=== PATIENT | female | born 2000 | race Caucasian/White ===

== ENCOUNTER → 2021-06-10 19:27 | Outpatient (ROUT) | payer OTHER, SELFPAY ==
[2021-06-10 22:32] LABS: Urine N gonorrhoeae NOT DETECTED
[2021-06-10 23:02] LABS: Urine Chlamydia NOT DETECTED
== END ==
PROVIDERS: Visit Provider Obstetrics & Gynecology
DX: Z34.81 Encounter for supervision of other normal pregnancy, first trimester (principal); Z3A.08 8 weeks gestation of pregnancy
CPT/HCPCS: 87491; 87591

== ENCOUNTER → 2021-07-08 08:23 | Outpatient (CLI) | payer OTHER, SELFPAY ==
[2021-07-08 10:19] LABS: Add Manual Diff / Slide Review NO; Basophils Absolute Auto 0 /uL (0-100); Basophils Percent Auto 0.2 % (0-2); Eosinophils Absolute Auto 100 /uL (0-450); Eosinophils Percent Auto 0.6 % (2-4); Hematocrit 39.2 % (36-46); Hemoglobin 13.8 g/dL (12.0-16.0); Lymphocytes Absolute Auto 1500 /uL (1100-4500); Lymphocytes Percent Auto 17.7 % (25-40); Mean Corpuscular HGB Conc 35.2 % (30-36); Mean Corpuscular Hemoglobin 30.8 PG (26-34); Mean Corpuscular Volume 87.4 fL (80-100); Monocytes Absolute Auto 400 /uL (0-900); Monocytes Percent Auto 4.5 % (3-14); Neutrophils Absolute Auto 6400 /uL (1500-7000); Platelet Count 248 X10^3/uL (150-400); Red Blood Cell Count 4.49 X10^6/uL (4.0-5.2); Red Cell Distribution Width 12.8 % (11.6-14.8); White Blood Cell Count 8.4 X10^3/uL (4.5-11.0)
[2021-07-08 10:58] LABS: Hepatitis B Surface Antigen NEGATIVE s/c (NEGATIVE); Rubella Antibody IgG 12.1 IU/mL (>15)
[2021-07-08 11:21] LABS: HIV 1 & 2 Ab/Ag 4th Gen Combo NEGATIVE (NEGATIVE); Hep C Virus Ab w/Reflex Quant NEGATIVE s/c (NEGATIVE)
[2021-07-09 10:35] LABS: RPR Screen Non Reactive (Non Reactive)
[2021-07-09 11:52] LABS: Varicella IgG Antibody <135 index (Immune >165)
== END ==
PROVIDERS: Referring Provider Obstetrics & Gynecology; Visit Provider Obstetrics & Gynecology
DX: Z34.80 Encounter for supervision of other normal pregnancy, unspecified trimester (principal)
CPT/HCPCS: 36415; 80055; 86787; 86803; 86850; 86900; 86901; 87389

== ENCOUNTER → 2021-08-05 14:07 | Outpatient (CLI) | payer OTHER, SELFPAY ==
[2021-08-09 12:10] LABS: Calc Gestational Age EDD (.); Estriol, Free 1.48 ng/mL (.); Inhibin A, Dimeric 155.16 pg/mL (.); Inhibin A, MoM 0.88 (.); Maternal Ethnicity Caucasian (.); Maternal Weight 120 lbs (.); Number of Fetuses No (.); OSBR Risk 1 IN 2886 (.); Results Report (.); Test Results *Screen Negative* (.); hCG, MoM 0.57 (.); hCG, Serum 24060 mIU/mL (.)
== END ==
PROVIDERS: Referring Provider Obstetrics & Gynecology; Visit Provider Obstetrics & Gynecology
DX: Z34.82 Encounter for supervision of other normal pregnancy, second trimester (principal); Z3A.16 16 weeks gestation of pregnancy
CPT/HCPCS: 36415; 82105; 82677; 84702; 86336

== ENCOUNTER → 2021-09-11 12:08 | Outpatient (CLI) | payer OTHER, SELFPAY ==
--- NOTE | 2021-09-11 12:09 | DI.US.S_ITS ---
PROCEDURE: US OB >= 14 WEEKS FETUS INDICATIONS: ANATOMY OUTSIDE/PRIOR DATING DATA: Last menstrual period (LMP): Unknown. LMP-based estimated date of delivery (JANEY): Not applicable. First dating scan (date and location): 06/10/2021. Estimated date of delivery (JANEY) from first dating scan: 01/15/2022. The calculations are made using the ultrasound generated JANEY of 01/15/2022. TECHNIQUE: Real-time scanning was performed of the fetus, with image documentation and biometric measurements. Endovaginal scanning: Not performed COMPARISON: None. FINDINGS: General: A single living intrauterine gestation is present. Presentation: Vertex. Placenta: Placental position is posterior , without previa. Amniotic fluid index: 16.2 cm, normal range is 5-24 cm. heart rate: 168 beats per minute. Maternal cervical canal: 3.5 cm long. Normal lower limit is 2.5 cm. biometrics: Biparietal diameter: 5.4 cm Head circumference: 20 cm Abdominal circumference: 17.4 cm Femur length: 4.0 cm Composite gestational age from present scan: 22 weeks 3 days Estimated weight and percentile: 500 of 11 g, 71st percentile Anatomic survey: Neuro: Ventricles are non-dilated at less than 10 mm. Cisterna magna is normal at 3-11 mm. Cerebellum is normal in size and morphology. Nuchal skin fold: Normal at less than 6 mm between 14-21 weeks gestational age. Face: Nose and lips, facial profile are normal. Spine: No evidence for spina bifida. Heart: 4-chambered heart is present, with normal ventricular outflow tracts. Diaphragm: Diaphragm is intact. Stomach: Left-sided stomach is present. Kidneys: No hydronephrosis. Normal is less than 5 mm in 2nd trimester, less than 7 mm in 3rd trimester. Cord: 3-vessel cord has orthotopic insertion. Bladder: Normal in size. Extremities: All 4 extremities identified. IMPRESSION: Single live intrauterine gestation with estimated age of 22 weeks 3 days and normal anatomic survey. We strive to produce accurate, complete, and clear reports of imaging services. To assist us in improving patient care, this report was composed using standard report templates and voice recognition software. Therefore, it may contain abnormal punctuation, insertions and/or omissions. Occasional wrong-word or sound-alike substitutions may occur. Though we review the report and make efforts to correct it, we do recommend that the report be read carefully in proper context to recognize any text inaccuracies. Dictated by: Tho Altamirano M.D. on 09/11/2021 at 14:26 Approved by: Tho Altamirano M.D. on 09/11/2021 at 14:28
== END ==
PROVIDERS: Referring Provider Obstetrics & Gynecology; Visit Provider Obstetrics & Gynecology
DX: Z34.82 Encounter for supervision of other normal pregnancy, second trimester (principal); Z3A.22 22 weeks gestation of pregnancy
CPT/HCPCS: 76811

== ENCOUNTER → 2021-09-30 08:08 | Outpatient (CLI) | payer OTHER, SELFPAY ==
[2021-09-30 16:55] LABS: Appearance Urine UA CLEAR; Bilirubin Urine UA NEGATIVE (NEGATIVE); Color Urine UA YELLOW; Glucose Urine UA NEGATIVE (Negative); Ketones Urine UA TRACE (NEGATIVE); Leukocyte Esterase Urine UA NEGATIVE (NEGATIVE); Nitrite Urine UA NEGATIVE (Negative); Occult Blood Urine UA NEGATIVE (Negative); Protein Urine UA NEGATIVE (Negative); Urobilinogen Urine UA 0.2 E.U./dL (0.2)
== END ==
PROVIDERS: Visit Provider Obstetrics & Gynecology
DX: Z34.80 Encounter for supervision of other normal pregnancy, unspecified trimester (principal)
CPT/HCPCS: 81003; 87086

== ENCOUNTER 2021-10-04 19:59 | Observation (INO) | payer OTHER, SELFPAY ==
[2021-10-04 20:47] LABS: Bilirubin Urine UA NEGATIVE (NEGATIVE); Color Urine UA YELLOW; Glucose Urine UA NEGATIVE (Negative); Ketones Urine UA NEGATIVE (NEGATIVE); Leukocyte Esterase Urine UA NEGATIVE (NEGATIVE); Nitrite Urine UA NEGATIVE (Negative); Occult Blood Urine UA TRACE-LYSED (Negative); Protein Urine UA NEGATIVE (Negative); Specific Gravity Urine UA 1.015 (1.000-1.035); Urobilinogen Urine UA 0.2 E.U./dL (0.2)
[2021-10-04 20:50] LABS: Appearance Urine UA SL CLOUDY
[2021-10-04 20:58] LABS: Amorphous Sediment Urine 1+; Bacteria Urine Few (2-10); Culture Indicated Urine Cult Not Indicated; RBC Urine None Seen (0-5/HPF); WBC Urine 0-1/HPF (0-5/HPF)
[2021-10-04 22:20] LABS: Fetal Fibronectin Negative
--- NOTE | 2021-10-04 22:38 | P.TNLD_ITS ---
Visit Information Visit Information Date of evaluation: 10/04/21 Primary OB Provider: Lydia Anderson On-call OB Provider: Jessica Walker Comments/Additional reasons for admission: 23 yo presents due to calling with constant cramping. She noted lower pelvic the vaginal discomfort yesterday when out walking at [employer] and then c ramping. Cramping continued today. She took it easy resting offer feet and reports hydrating well as per her usual and despite that has had uncomfortable cramping. Cramping sometimes worse with walking. Also feeling some vaginal and pelvic pressure. About a week ago noticed some mucousy discharge, no recent discharge. Also bout 10 days ago had a 1 time episode of watery discharge feeling her panty liner, without recurrence. Reports family history of pre term labor. has been uncomplicated. Denies any recent questionable leakage of fluid. No noted vaginal discharge recently. Denies vaginal itching. Feels movement. Vital Signs Vital Signs: Temp 36.1F Pulse 108 BP 120/67 PFSH Medical History (Updated 10/04/21 @ 23:57 by Jessica Walker MD) Anxiety Depression Eczema Insomnia Ringworm UTI (urinary tract infection) Surgical History (Updated 06/04/21 @ 15:40 by Juanita Schumacher RN) No history of previous surgery Family History (Updated 06/12/21 @ 22:12 by Carolann Farley) Mother Autoimmune disease Endometriosis CRPS (complex regional pain syndrome) Cancer Mental health problem Sister POTS (postural orthostatic tachycardia syndrome) Endometriosis Mental health problem Chronic migraine Grandfather Diabetes mellitus Hyperlipidemia Hypertension Stroke Grandfather Clotting disorder Heart disease Hyperlipidemia Hypertension Stroke Mental health problem History of heart attack Father Mental health problem Sister Mental health problem Grandmother Cancer S/P removal of lung Grandmother Diabetes mellitus Hypertension Hyperlipidemia Social History marital status: number of children: 0 lives independently: Yes housing: apartment pets and animals: Yes (dogs, cat - aware of toxo) education level: high school occupational status: unemployed current occupational exposures/hazards: No special nicholas needs: No seatbelt use: always water heater temp set < 120 deg: Yes working smoke detector in home: Yes carbon monox detector in home: Yes firearms in home: Yes firearms unloaded and locked: Yes do you feel safe at home: Yes Smoking Status: Current some day smoker (vape - weaning) second hand exposure: Yes () alcohol intake: former substance use type: does not use during the past year weight has: remained stable well-balanced diet: daily or most days daily servings fruits/ve-4 caffeine: Yes (200mg a day) Type(s) of exercise: walking (torn ACL) Objective Labs Result Diagrams: 10/04/21 22:50 10/04/21 23:15 Labs: Laboratory Results - last 24 hr 10/04/21 10/04/21 20:25 21:45 Urine Color Yellow Urine Appearance Sl cloudy Urine pH 7.0 Ur Specific [place] 1.015 Urine Protein Negative Urine Glucose (UA) Negative Urine Ketones Negative Urine Occult Blood Trace-lysed Urine Nitrate Negative Urine Bilirubin Negative Urine Urobilinogen 0.2 Ur Leukocyte Esterase Negative Urine RBC None seen Urine WBC 0-1/hpf Amorphous Sediment 1+ Urine Bacteria Few (2-10) H Ur Culture Indicated? Cult not indicated Fibronectin Negative Evaluation Evaluation Baseline heart rate: 150 Variability: Average (6-10) monitor accelerations: Present Monitor Decelerations: Absent Contraction Frequency (minutes): 3 Uterine Contraction Intensity: Mild Category of Tracing: Appropriate for gestational age Status: Category l Cervical dilation (cm): 0 Cervical effacement (%): 0 Comments: cervix mid position. some fullness in JERSON Speculum exam, some heavier thin yellow discharge with 1 clumpy area. Wet prep by me showed yeast. FFN collected, negative. Diagnosis, Plan/Disposition Final Diagnosis (1) uterine contractions in second trimester, antepartum: Status: Acute Plan/Disposition Plan: 1. contractions 2. Yeast infection Initially on monitoring no contractions noted but questionable irritability it. After exam EFM taken off with being reassuring and toco placed lower over uterus and regular contractions seen every 3-5 minutes noted. Patient IV hydrated 500 mL, then decreased to 150 mL/hr. Contractions persisted after the IV fluid bolus. Indomethacin 50 mg p.o. x1 given with gradual decrease then resolution of the contractions. She has not been feeling the contractions for over 2 hours. Contractions resolved for past hour. Will discharge home with contractions resolved. Given her indomethacin 25 mg po to take at 530am, 6 hours from the last dose. Advised her to call the office on Wednesday to be seen this week in the office and be given the number to schedule an ultrasound. I will send a note to the office as well. Advised her to buy [id number] Monistat 3 or 7 to treat the yeast, generic fine. OB Disposition: home
[2021-10-04 23:00] LABS: Add Manual Diff / Slide Review NO; Basophils Absolute Auto 100 /uL (0-100); Basophils Percent Auto 0.5 % (0-2); Eosinophils Absolute Auto 0 /uL (0-450); Eosinophils Percent Auto 0.3 % (2-4); Hematocrit 36.9 % (36-46); Hemoglobin 12.7 g/dL (12.0-16.0); Lymphocytes Absolute Auto 2200 /uL (1100-4500); Mean Corpuscular HGB Conc 34.5 % (30-36); Mean Corpuscular Hemoglobin 31.1 PG (26-34); Mean Corpuscular Volume 90.3 fL (80-100); Monocytes Absolute Auto 800 /uL (0-900); Monocytes Percent Auto 6.7 % (3-14); Neutrophils Absolute Auto 8400 /uL (1500-7000); Neutrophils Percent Auto 73.5 % (50-75); Platelet Count 249 X10^3/uL (150-400); Red Blood Cell Count 4.08 X10^6/uL (4.0-5.2); Red Cell Distribution Width 13.3 % (11.6-14.8); White Blood Cell Count 11.5 X10^3/uL (4.5-11.0)
[2021-10-04 23:33] LABS: Carbon Dioxide 24 mmol/L (22-32); Chloride 106 mmol/L (98-107); HEMOLYSIS < 15 (0-50); Potassium 3.9 mmol/L (3.4-5.1); Sodium 135 mmol/L (137-145)
[2021-10-04] MEDS: INDOMETHACIN 25 MG CAPSULE 50 MG PO (23:38)
[2021-10-05] MEDS: INDOMETHACIN 25 MG CAPSULE PO (02:10)
== END 2021-10-05 02:22 | disposition home or self-care (01) ==
LOC: LABOR 20:04
PROVIDERS: Admitting Provider Obstetrics & Gynecology; Referring Provider Obstetrics & Gynecology; Visit Provider Obstetrics & Gynecology
DX: O47.02 False labor before 37 completed weeks of gestation, second trimester (principal); Z3A.25 25 weeks gestation of pregnancy
CPT/HCPCS: 36415; 59025; 59050; 76815; 80051; 81001; 82731; 85025; 87086; 96360; G0378; G0379

== ENCOUNTER → 2021-10-28 12:40 | Outpatient (CLI) | payer OTHER, SELFPAY ==
[2021-10-28 15:15] LABS: GTT (PREG) 1 Hour PP 50gm Dose 112 mg/dL (76-139)
== END ==
PROVIDERS: Referring Provider Obstetrics & Gynecology; Visit Provider Obstetrics & Gynecology
DX: Z34.82 Encounter for supervision of other normal pregnancy, second trimester (principal); Z3A.26 26 weeks gestation of pregnancy
CPT/HCPCS: 82950

== ENCOUNTER → 2021-12-24 15:20 | Outpatient (CLI) | payer OTHER, SELFPAY ==
[2021-12-25 15:51] LABS: Strep Grp B PCR NEG for Grp B Strep
== END ==
PROVIDERS: Family Provider Obstetrics & Gynecology; PCP Obstetrics & Gynecology; Visit Provider Obstetrics & Gynecology
DX: Z34.03 Encounter for supervision of normal first pregnancy, third trimester (principal); Z3A.36 36 weeks gestation of pregnancy
CPT/HCPCS: 87653

== ENCOUNTER 2022-01-18 19:10 | Outpatient (CLI) | payer OTHER, SELFPAY ==
[2022-01-18 20:30] VITALS: BP 129/70
[2022-01-18 20:50] LABS: COVID19 -Nasal RAPID Negative (Negative)
== END 2022-01-18 20:00 | disposition home or self-care (01) ==
LOC: LABOR 19:28 → OB 01-22 11:24
PROVIDERS: Family Provider Obstetrics & Gynecology; Referring Provider Obstetrics & Gynecology; Visit Provider Obstetrics & Gynecology
DX: O48.0 Post-term pregnancy (principal); O47.1 False labor at or after 37 completed weeks of gestation; Z20.822 Contact with and (suspected) exposure to COVID-19; Z3A.40 40 weeks gestation of pregnancy
CPT/HCPCS: 59025; 87635; C9803; G0378; G0379

== ENCOUNTER 2022-01-19 07:09 | Inpatient (IN) | payer OTHER, SELFPAY ==
--- NOTE | 2022-01-19 07:41 | PM.OBHP.IH.1 ---
OB HPI Date/Time Date of admission: 01/19/22 Date Patient Seen: 01/19/22 Time Patient Seen: 07:45 History of Present Condition Chief complaint: Labor JANEY Calculator Estimated Delivery Date Method Current WG Current Estimate 01/15/22 LMP (Uncertain) 40w 4d Other Estimates 01/15/22 Ultrasound #1 40w 4d Estimated Gestational Age (weeks): 40 : 2 Para: 0 Narrative: 21 yo female at 40 weeks 4 days by LMP and consistent with an 8 week ultrasound, is being admitted for elective term induction. Her was complicated by an episode of contractions at 25 weeks, which resolved after treatment with indomethacin. She did not have any recurrence of contractions. care: good care Dating criteria OB: LMP confirmed by 1st trimester US Ultrasounds: normal 1st trimester US and normal mid trimester US Obstetrical complications: none Medical complications OB: psychiatric (on Wellbutin for anxiety, controlled) Indications Indication for induction OB: other (term [id number]) Other reason(s) for admission: 21 yo Preadmission Labs Last OB Lab Results: Blood Type O Positive 01/19/22 08:05 Antibody Screen Negative 01/19/22 08:05 Hematocrit 35.5 % (36-46) L 01/19/22 08:05 Hemoglobin 12.0 g/dL (12.0-16.0) 01/19/22 08:05 Hepatitis B Surface Antigen Negative s/c (NEGATIVE) 07/08/21 08:43 Hepatitis C Antibody Negative s/c (NEGATIVE) 07/08/21 08:43 Rubella Antibody 12.1 IU/mL (>15) L 07/08/21 08:43 Varicella-Zoster IgG Antibody <135 index (Immune >165) L 07/08/21 08:43 Glucose 1 Hour 112 mg/dL (76-139) 10/28/21 12:50 Group B Streptococcus (PCR) Neg for grp b strep 12/24/21 15:20 -: Chlamydia screen: negative and Gonorrhea screen: negative Genetic Screens: Quad screen: Normal Prior (ies) Past Pregnancies Del. Date GA/Weeks Labor Lgth Wt Sex Route Outcome Anesthesia Place Delv Breastfeed Preg Comp Name 08/04/19 6 spontaneous Delivery Date: 08/04/19 Last Updated by: Juanita Schumacher R.N. No problems Evaluation Evaluation Baseline heart rate: 135 Variability: Moderate (11-25) monitor accelerations: Present Monitor Decelerations: Absent Contraction Frequency (minutes): 20 Category of Tracing: Reactive Status: Category l Dilation (cm): 5 Effacement (%): 90 Dilation: >/=5 cm Effacement: >/=80% station: -1 Position of cervix: mid Consistency: soft Perez score: 11 PFSH Medical History Anxiety Depression Eczema Insomnia Ringworm UTI (urinary tract infection) Surgical History No history of previous surgery Family History (Updated 06/12/21 @ 22:12 by Carolann Farley) Mother Autoimmune disease Endometriosis CRPS (complex regional pain syndrome) Cancer Mental health problem Sister POTS (postural orthostatic tachycardia syndrome) Endometriosis Mental health problem Chronic migraine Grandfather Diabetes mellitus Hyperlipidemia Hypertension Stroke Grandfather Clotting disorder Heart disease Hyperlipidemia Hypertension Stroke Mental health problem History of heart attack Father Mental health problem Sister Mental health problem Grandmother Cancer S/P removal of lung Grandmother Diabetes mellitus Hypertension Hyperlipidemia Social History marital status: number of children: 0 lives independently: Yes housing: apartment pets and animals: Yes (dogs, cat - aware of toxo) education level: high school occupational status: unemployed current occupational exposures/hazards: No special nicholas needs: No seatbelt use: always water heater temp set < 120 deg: Yes working smoke detector in home: Yes carbon monox detector in home: Yes firearms in home: Yes firearms unloaded and locked: Yes do you feel safe at home: Yes Smoking Status: Never smoker second hand exposure: Yes () alcohol intake: former substance use type: does not use during the past year weight has: remained stable well-balanced diet: daily or most days daily servings fruits/ve-4 caffeine: Yes (200mg a day) Type(s) of exercise: walking Meds Home Medications and Allergies Home Medications Medication Instructions Recorded Confirmed Type prenat.vits,tal,myr-oanv-uryoe 1 tab PO DAILY 06/04/21 01/19/22 History bupropion HCl 150 mg 24 hr tablet, 150 mg PO DAILY #90 tabs 10/28/21 01/19/22 Rx extended release (Wellbutrin XL) Allergies Allergy/AdvReac Type Severity Reaction Status Date / Time No Known Drug Allergies Allergy Verified 01/19/22 07:52 OB Exam Narrative Exam Narrative: VS BP 123/74 HENMT Head: normal to inspection and normocephalic Resp Effort & Inspection: normal respiratory effort and able to speak in complete sentences Cardio Rate: regular rate Extremities Lower extremity: Yes normal to inspection Objective Labs Result Diagrams: 01/19/22 08:05 Assessment and Plan Assessment and Plan Assessment and Plan narrative: [id number] , admitted for elective IOL at term. GBS negative Start Pitocin. Will rupture membranes when she is in a regular contraction pattern. Time Spent with Patient Total time spent with greater than 50% in coordination of care (as documented) at patient's floor/unit and/or counseling patient:: less than 15 minutes
[2022-01-19] MEDS: LACTATED RINGERS 1,000 ML 100 ML IV ×2 (08:21→13:00)
[2022-01-19] MEDS: OXYTOCIN PREMIX 30 UNIT/500 ML PLAST..BAG IV (08:32)
[2022-01-19 08:48] LABS: Add Manual Diff / Slide Review NO; Basophils Absolute Auto 200 /uL (0-100); Basophils Percent Auto 1.4 % (0-2); Eosinophils Absolute Auto 0 /uL (0-450); Eosinophils Percent Auto 0.3 % (2-4); Hematocrit 35.5 % (36-46); Lymphocytes Absolute Auto 2000 /uL (1100-4500); Lymphocytes Percent Auto 18.3 % (25-40); Mean Corpuscular HGB Conc 33.6 % (30-36); Mean Corpuscular Volume 83.4 fL (80-100); Monocytes Absolute Auto 700 /uL (0-900); Neutrophils Absolute Auto 8000 /uL (1500-7000); Platelet Count 239 X10^3/uL (150-400); Red Blood Cell Count 4.26 X10^6/uL (4.0-5.2); Red Cell Distribution Width 14.7 % (11.6-14.8); White Blood Cell Count 10.9 X10^3/uL (4.5-11.0)
[2022-01-19] MEDS: fentaNYL 100 MCG/2 ML INJ IV (11:04)
--- NOTE | 2022-01-19 13:22 | PM.OBPNLAB ---
Date/Time Date Patient Seen: 01/19/22 Time Patient Seen: 13:22 Pain Control Pain control: epidural Comments: Contractions became uncomfortable with the Pitocin. She just finished receiving an epidural and is comfortable Pelvic Exam Dilation (cm): 5 Effacement (%): 90 station: -1 Amniotic membrane status: Ruptured (AROM clear) Contractions Contractions on admission: regular Pitocin rate (mU/min): 7 Contraction frequency (min): 3 Contraction pattern: Regular Contraction intensity: Moderate Status status: Category l Heart Rate Baseline: 130 Monitor Accelerations: Present Monitor Decelerations: Absent Monitor Variability: Moderate Assessment and Plan Assessment: induction ongoing Plan: other Comments: Contractions becoming uncomfortable, cervix unchanged. Vertex well applied. Membranes artificially ruptured for augmentation. Continue Pitocin at current level 7 milliunits per minute and observe for progress with ruptured membranes.
--- NOTE | 2022-01-19 17:22 | PM.OBPRVD ---
Events: Labor Induction Labor & Delivery Delivery date: 01/19/22 Intrapartal Events: None and Deceleration (moderate variables with good recovery with last 20 minutes pushing) Cervical ripening method: none Induction method: per pitocin protocol Delivery augmentation: rupture of membranes Delivery monitor: external FHT and external uterine Route of delivery: Episiotomy description: None L&D Laceration Description: Periurethral - 2nd Degree and Perineal - 3rd Degree Delivery repair: vicryl and chromic Quantitative Blood Loss: 150 Anesthesia Type: Epidural Complications: none Baby 1: gender: Female Presentation: vertex Position: Left Occiput Anterior Placenta delivery description: Spontaneous and Normal Configuration Cord Vessel Description: 3 Vessels, Nuchal Cord and Around Body x1 score (1 min): 8 score (5 min): 9 weight: 8 lb 11.685 oz Narrative: of a viable female over an intact perineum. Repair of a third-degree perineal tear. Placenta spontaneous, intact with three-vessel cord. She progressed to completely dilated. ?She began pushing, pushed approximately 35 mintue and had a spontaneous vaginal delivery over an intact perineum from the NKECHI position. A nuchal cord was present, which was not tight but was too snug to reduce. I let her push and delivered through the cord.. ?Anterior followed by posterior shoulder were delivered without difficulty with the patient pushing, followed by the remainder of the body. ?A baby girl was delivered at 1534. The baby cried spontaneously, appeared vigorous and was placed on the maternal abdomen. ?After the cord stopped pulsating, after over 1 minute, the cord was clamped and then cut by the father. Placenta delivered spontaneously 12 minutes later. On delivery placenta had attached trailing membranes, which were slowly pulled out, appeared complete. ?She had only light bleeding after delivery of the placenta. She was given routine Pitocin IV. During the repair she did have some increased light bright red bleeding when she had been having only minimal. On palpation at the cervix there were a few clots palpated which were teased out. On further palpation through the cervical os, there did palpate to be a little membrane through her cervix which was grasped and removed. No further membranes or palpated. Her bleeding remained normal through the repair and . On inspection she had a 3rd degree perineal laceration??which was repaired in the usual fashion with 3-0 chromic and 2-0 Vicryl was used to reapproximate the capsule. She also had a 2nd degree right periurethral tear which extended through her superior hymen. It was bleeding in this area and area was closed with 3-0 chromic and hemostasis obtained. There was a left first-degree periurethral tear which was hemostatic and not repaired. She had a normal rectal exam prior to and after the repair. She did well and was left to recover in good condition. Plan for aftercare: Routine care
[2022-01-19] MEDS: IBUPROFEN 600 MG TABLET PO (18:49)
[2022-01-19] MEDS: ACETAMINOPHEN 325 MG TABLET 650 MG PO (18:50)
[2022-01-20 06:25] LABS: Add Manual Diff / Slide Review NO; Basophils Absolute Auto 0 /uL (0-100); Basophils Percent Auto 0.2 % (0-2); Eosinophils Absolute Auto 0 /uL (0-450); Eosinophils Percent Auto 0.1 % (2-4); Hematocrit 29.6 % (36-46); Hemoglobin 9.8 g/dL (12.0-16.0); Lymphocytes Absolute Auto 1800 /uL (1100-4500); Lymphocytes Percent Auto 14.1 % (25-40); Mean Corpuscular HGB Conc 33.3 % (30-36); Mean Corpuscular Hemoglobin 27.6 PG (26-34); Monocytes Absolute Auto 1000 /uL (0-900); Monocytes Percent Auto 7.7 % (3-14); Neutrophils Absolute Auto 9800 /uL (1500-7000); Neutrophils Percent Auto 77.9 % (50-75); Platelet Count 178 X10^3/uL (150-400); Red Blood Cell Count 3.56 X10^6/uL (4.0-5.2); Red Cell Distribution Width 14.7 % (11.6-14.8); White Blood Cell Count 12.6 X10^3/uL (4.5-11.0)
[2022-01-20] MEDS: buPROPion XL 150 MG TAB PO (10:00)
[2022-01-20] MEDS: DOCUSATE 100 MG CAPSULE PO (10:00)
--- NOTE | 2022-01-20 11:27 | P.DS_ITS ---
History of Present Illness History of Present Illness Date Patient Seen: 01/20/22 Chief complaint: Labor Discharge Providers Provider Date of admission: 01/19/22 07:09 Discharge Date: 01/20/22 Primary care physician: Doctor James MD Consults: 01/20/22 17:18 Consult to Director Of Accounts Payable Routine Comment: Discharge provider: Jessica Walker MD Summary Hospital Course Discharge Diagnosis: 40 week , delivered Status post spontaneous vaginal delivery and repair of third-degree perineal laceration Hospital Course: 21-year-old female admitted at 40 weeks 4 days for elective induction of labor for term . Her cervix was favorable at 5 cm/90% effaced. She was started on Pitocin and became uncomfortable at 7 milliunits of Pitocin. Cervix was unchanged at that time. She received an epidural for anesthesia and underwent artificial rupture membranes for clear fluid. She quickly progressed to completely dilated. She had a short 2nd stage and had a spontaneous vaginal delivery of a viable female infant with Apgars of 8 and 9. She had repair of a third-degree perineal laceration. She has had a normal course. Her lochia is normal. She is voiding without problems. She reports that her perineal discomfort is mostly controlled with ibuprofen and Tylenol but is feeling more discomfort when lying down, rather than sitting. It was more difficult to sleep last pm with the perineal discomfort. She is only use the ibuprofen and Tylenol. Discussed using some oxycodone to be able to sleep better, wean off as discomfort controlled with the ibuprofen and Tylenol. She did find Dermoplast gave her some relief. She was started on stool softeners due to the third-degree perineal laceration. She desires discharge home today. The baby is well, doing well and ok for discharge today. She will be discharged home with a follow-up appointment in 2 weeks since she is at increased risk for depression and routine visit at 6 weeks. Status at Discharge Cognitive/behavioral status at discharge: oriented and at baseline, oriented Functional status at discharge: independent ambulation Overall status at discharge: patient is progressing back to baseline Time Spent with Patient Time spent: Less than 30 minutes Exam Vital Signs (past 8 hours): Temp 97.7, BP 113/72, pulse 84, RR 16 Narrative Exam Narrative: General: ?Well-appearing female Abdomen: ?Soft, nontender, nondistended. ?Fundus U-1, firm, nontender Extremities: ?Trace pedal edema Objective Labs Result Diagrams: 01/20/22 05:52 Labs: Laboratory Results - last 24 hr 01/20/22 05:52 WBC 12.6 H RBC 3.56 L Hgb 9.8 L Hct 29.6 L MCV 83.0 MCH 27.6 MCHC 33.3 RDW 14.7 Plt Count 178 Neut % (Auto) 77.9 H Lymph % (Auto) 14.1 L [place] % (Auto) 7.7 Eos % (Auto) 0.1 L Baso % (Auto) 0.2 Neut # (Auto) 9800 H Lymph # (Auto) 1800 [place] # (Auto) 1000 H Eos # (Auto) 0 Baso # (Auto) 0 PFSH Medical History Anxiety Depression Eczema Insomnia Ringworm UTI (urinary tract infection) Surgical History No history of previous surgery Family History (Updated 06/12/21 @ 22:12 by Carolann Farley) Mother Autoimmune disease Endometriosis CRPS (complex regional pain syndrome) Cancer Mental health problem Sister POTS (postural orthostatic tachycardia syndrome) Endometriosis Mental health problem Chronic migraine Grandfather Diabetes mellitus Hyperlipidemia Hypertension Stroke Grandfather Clotting disorder Heart disease Hyperlipidemia Hypertension Stroke Mental health problem History of heart attack Father Mental health problem Sister Mental health problem Grandmother Cancer S/P removal of lung Grandmother Diabetes mellitus Hypertension Hyperlipidemia Social History marital status: number of children: 0 lives independently: Yes housing: apartment pets and animals: Yes (dogs, cat - aware of toxo) education level: high school occupational status: unemployed current occupational exposures/hazards: No special nicholas needs: No seatbelt use: always water heater temp set < 120 deg: Yes working smoke detector in home: Yes carbon monox detector in home: Yes firearms in home: Yes firearms unloaded and locked: Yes do you feel safe at home: Yes Smoking Status: Never smoker second hand exposure: Yes () alcohol intake: former substance use type: does not use during the past year weight has: remained stable well-balanced diet: daily or most days daily servings fruits/ve-4 caffeine: Yes (200mg a day) Type(s) of exercise: walking Discharge Assessment & Plan Assessment and Plan Assessment: day 1, status post spontaneous vaginal delivery, doing well Plan of Treatment: She desires discharge home today. Rx short-term oxycodone for perineal discomfort from OB laceration. Discussed stool softener to keep stool soft, especially while in the oxycodone. Follow-up appointment in 2 and 6 weeks Discharge Plan Discharge Plan Patient Disposition: Home Provider Discharge Comment: Status post spontaneous vaginal delivery after induction of labor at 40 weeks Repair of third-degree perineal laceration Recommend picking up Colace or generic equivalent (docusate sodium) and take 1 tablet twice daily to keep stool soft, especially while using the oxycodone. Use [id number] Tylenol as well for discomfort. Discharge orders & Medications Prescriptions: New Dermoplast (with menthol) 20-0.5 % Aerosol 1 spray topical Q1HR PRN (Reason: perineal pain) Qty: 56 0RF oxycodone 5 mg tablet 5 mg PO Q6H PRN (Reason: pain, severe) Qty: 10 0RF ibuprofen 600 mg tablet 600 mg PO Q6H PRN (Reason: pain) Qty: 60 0RF Continued prenat.vits,tal,[id number] Tablet 1 tab PO DAILY bupropion HCl [Wellbutrin XL] 150 mg tablet extended release 24 hr 150 mg PO DAILY Qty: 90 1RF Follow up/Referrals: Jessica Walker MD [Family Provider] - 2 Weeks (2-3 weeks for visit for mood check, at risk for PP depression and 6 week routine visit) Doctor Ramirez MD [Primary Care Provider] - Discharge Health Status Multidrug resistant organism: No MDRO Diet/Activity/Treatments Diet: Diet as Tolerated Activity: Nothing in the vagina for 6 weeks, do not use tampons and no intercourse Drink plenty of water for and to help keep stool soft. Advise good fiber in your diet to help keep stool soft as well be sides using a stool softener Skin/Wound/Dressing Care Report to your healthcare provider any signs of infection, such as:: chills, fever and increased pain Visit Report/Discharge Packet Instructions: DI for Labor and Delivery, Vaginal Discharge Data Primary Care Provider: Doctor James
[2022-01-20] MEDS: IBUPROFEN 600 MG TABLET PO (13:03)
[2022-01-20] MEDS: ACETAMINOPHEN 325 MG TABLET 650 MG PO (13:04)
[2022-01-20 15:02] VITALS: BP 112/75; PULSE 86; RESP 16; TEMP 36.4
[2022-01-20] MEDS: MEASLES,MUMPS,RUBELLA VACC/PF 0.5 ML VIAL SUBCUT (15:48)
== END 2022-01-20 16:26 | disposition home or self-care (01) | DRG 768 ==
PROVIDERS: Admitting Provider Obstetrics & Gynecology; Family Provider Obstetrics & Gynecology; Referring Provider Obstetrics & Gynecology; Visit Provider Obstetrics & Gynecology
DX: O99.344 Other mental disorders complicating childbirth (principal); Z37.0 Single live birth; O70.20 Third degree perineal laceration during delivery, unspecified; F41.9 Anxiety disorder, unspecified; O71.82 Other specified trauma to perineum and vulva; O76 Abnormality in fetal heart rate and rhythm complicating labor and delivery; Z3A.40 40 weeks gestation of pregnancy; Z20.822 Contact with and (suspected) exposure to COVID-19
CPT/HCPCS: 01967; 36415; 59050; 59400; 59409; 85025; 86850; 86900; 86901; G0379; J2590; J3010

== ENCOUNTER → 2022-08-11 15:03 | Outpatient (CLI) | payer OTHER, SELFPAY ==
[2022-08-11 15:27] LABS: Add Manual Diff / Slide Review NO; Basophils Absolute Auto 0 /uL (0-100); Basophils Percent Auto 0.5 % (0-2); Eosinophils Absolute Auto 0 /uL (0-450); Eosinophils Percent Auto 0.2 % (2-4); Hematocrit 40.2 % (36-46); Hemoglobin 13.9 g/dL (12.0-16.0); Lymphocytes Absolute Auto 2400 /uL (1100-4500); Lymphocytes Percent Auto 26.8 % (25-40); Mean Corpuscular HGB Conc 34.6 % (30-36); Mean Corpuscular Hemoglobin 29.8 PG (26-34); Mean Corpuscular Volume 86.1 fL (80-100); Monocytes Absolute Auto 500 /uL (0-900); Monocytes Percent Auto 5.7 % (3-14); Neutrophils Absolute Auto 5900 /uL (1500-7000); Neutrophils Percent Auto 66.8 % (50-75); Platelet Count 332 X10^3/uL (150-400); Red Blood Cell Count 4.68 X10^6/uL (4.0-5.2); Red Cell Distribution Width 13.5 % (11.6-14.8); White Blood Cell Count 8.8 X10^3/uL (4.5-11.0)
[2022-08-11 15:40] LABS: Alanine Aminotransferase 15 IU/L (<35); Albumin 4.5 g/dL (3.5-5.0); Albumin Globulin Ratio 1.4 (1.0-2.8); Alkaline Phosphatase 55 U/L (38-126); Aspartate Aminotransferase 20 IU/L (14-36); BUN Creatinine Ratio 9.8 (6-22); Bilirubin Total 0.6 mg/dL (0.2-1.3); Blood Urea Nitrogen 6 mg/dL (7-17); Carbon Dioxide 24 mmol/L (22-32); Chloride 103 mmol/L (98-107); Estimated Glomerular Filt Rate > 60 mL/min (>60); Globulin 3.2 g/dL (1.7-4.1); Glucose 87 mg/dL (70-100); HEMOLYSIS < 15 (0-50); Potassium 3.7 mmol/L (3.4-5.1); Sodium 137 mmol/L (137-145); Total Protein 7.7 g/dL (6.3-8.2)
== END ==
PROVIDERS: Family Provider Obstetrics & Gynecology; PCP Family Medicine; Referring Provider Family Medicine; Visit Provider Family Medicine
DX: D64.9 Anemia, unspecified (principal)
CPT/HCPCS: 36415; 80053; 85025

== ENCOUNTER 2022-10-29 09:21 | Outpatient (RCR) | payer OTHER, SELFPAY ==
--- NOTE | 2022-10-29 13:13 | PT.OIE ---
Current Diagnoses Low back pain, unspecified (10/29/22) Muscle spasm of back (10/29/22) Other specified disorders of muscle (10/29/22) Weakness (10/29/22) Past Medical History (Last Updated 08/11/22 @ 17:14 by Nate Raygoza DO) Anemia Anxiety Atypical nevi Contraception management Depression Eczema Encounter for well adult exam with abnormal findings Insomnia Left anterior knee pain Lower back pain Pelvic floor dysfunction in female Ringworm UTI (urinary tract infection) Past Surgical History (Last Reviewed 08/11/22 @ 17:07 by Nate Raygoza DO) No history of previous surgery Visit Care Team Role Provider Type Nate Raygoza DO Attending Provider Physician Family Provider Primary Care Provider Referring Provider Specialty: Family Practice Address: [address] [place] [address], [facility] Email: [email or web address] Physical Therapy Initial Evaluation PT-OP-A Visit Information Start: 10/25/22 08:09 Freq: Status: Active Protocol: Document 10/29/22 09:31 [facility] (Rec: 10/29/22 10:23 [facility] [id number]) Out-Patient Physical Therapy Visit Information Visit Information Visit Type Initial Evaluation Visit Start Time 09:32 Visit Stop Time 10:15 Total Visit Minutes 43 Visit Number 1 PT-OP-B Current Condition Start: 10/25/22 08:09 Freq: Status: Active Protocol: Document 10/29/22 09:31 [facility] (Rec: 10/29/22 10:23 [facility] [id number]) Current Condition History of Current Condition Onset Date during preganancy Current Complaints right sided hip and lumbar pain History of Current Condition right sided back and flank pain, first started 8 months , had 2 treatments of PT, then gave . Daughter is now 9 months old. Reports gradually throughout the day pain gets worse. Improves with Advil, Tylenol. Heat/ice worsens the pain. Also left knee pain causisng her to weight bear on her right side. Does prior exercises for back and knee. Prior Treatments and Tests no imaging Future Testing and Treatments Planned return to doctor after PT. Treatment Goals Patient/Caregiver Goals decrease pain or eliminate, eliminate need for pain medication. Prior Functional Status Baseline Function- ADL's Independent Baseline Function- Mobility Independent Baseline Function- Gait no difficulty Current Functional Impairments (Reported) Functional Limitations- ADL's increased pain as day progresses Functional Limitations- Mobility/Gait increased pain as day progresses Personal Factors Other Personal Factors That May Effect Patient has 9 month old baby, Therapy/Recovery lifting PT-OP-C Subjective Start: 10/25/22 08:09 Freq: Status: Active Protocol: Document 10/29/22 09:31 [facility] (Rec: 10/29/22 13:12 [facility] [id number]) OP-PT Pain Assessment Pain Assessment Grid Paper Pain Assessment Grid Completed Yes Location right l/s, hip, buttock Intensity 4 Scale Used Numeric (0 - 10) Description Aching,Tender,Tightness Frequency Frequent Pain Aggravating Factors Activity Other Pain Aggravating Factors as day progresses Home Pain Medication Use Pain Medications Used Yes Home Pain Medication Frequency occasionally PT-OP-G Mobility & Gait Start: 10/25/22 08:09 Freq: Status: Active Protocol: Document 10/29/22 09:31 [facility] (Rec: 10/29/22 13:12 [facility] [id number]) OP Gait Assessment Gait Gait Assistance Required: Independent Assistive Devices Assistive Device None Gait Deviations General Gait Pattern Lateral Trunk Lean Factors Limiting Gait Function Factors Limiting Gait Function Pain Comments Gait Comments leans right, left shoulder elevated, dec arm swing right, decreased stance time right PT-OP-H Neuro Start: 10/25/22 08:09 Freq: Status: Active Protocol: Document 10/29/22 09:31 [facility] (Rec: 10/29/22 13:12 [facility] [id number]) Sensation Evaluation Gross Sensation Gross Sensation WNL Deep Tendon Reflex & Clonus Assessment Deep Tendon Reflex Bilateral Patellar Deep Tendon Reflex 2+ Normal PT-OP-J Posture/Palpation/Skin Start: 10/25/22 08:09 Freq: Status: Active Protocol: Document 10/29/22 09:31 [facility] (Rec: 10/29/22 13:12 [facility] [id number]) Posture Evaluation Position Standing Head/C-Spine Posture Forward Head L-Spine Posture Increased Lordosis Shoulder Posture (L) Elevated Scapula Posture (L) Protracted,(R) Protracted Arm Posture (L) Internally Rotated,(R) Internally Rotated Pelvis Posture Anteriorly Tilted Weight Distribution Weight Shifted Left Palpation Assessment Location glut med, QL, pir, lumbar paraspinals Palpation Findings Soft Tissue Tightness,Spasm, Trigger Point PT-OP-K Range of Motion Start: 10/25/22 08:09 Freq: Status: Active Protocol: Document 10/29/22 09:31 [facility] (Rec: 10/29/22 13:12 [facility] [id number]) Lumbar Spine Range of Motion Lumbar Spine Active Testing Position Standing Comments WNL all motions, denied pain. Patient hypermobile but left sidebending less than right with patient reporting feeling stretch sensation in area of usual pain PT-OP-L Special Tests Start: 10/25/22 08:09 Freq: Status: Active Protocol: Document 10/29/22 09:31 [facility] (Rec: 10/29/22 13:12 [facility] [id number]) Special Tests Lumbar Spine Special Tests Straight Leg Raise Test Results neg Slump Test Results neg Hip Special Tests JAIME Test Results neg scour Test Results neg PT-OP-M Strength Start: 10/25/22 08:09 Freq: Status: Active Protocol: Document 10/29/22 09:31 [facility] (Rec: 10/29/22 13:12 [facility] [id number]) Trunk Strength Trunk Manual Muscle Testing Flexion 4 Good Extension 4 Good Core Stabilization dec Hip Strength Hip Manual Muscle Testing Right Flexion (L2) 4+ Good+ Extension (S1) 4- Good- Abduction 4- Good- Adduction 3+ Fair+ Internal Rotation 4 Good Left Flexion (L2) 4+ Good+ Extension (S1) 4- Good- Abduction 4- Good- External Rotation 3+ Fair+ Internal Rotation 4 Good Knee Strength Knee Manual Muscle Testing kranthi Flexion (S2) 5 Normal Extension (L3) 5 Normal PT-OP-Q Treatments Start: 10/25/22 08:09 Freq: Status: Active Protocol: Document 10/29/22 09:31 [facility] (Rec: 10/29/22 13:12 [facility] [id number]) Self-Care/Home Management Treatment Education Patient Education Home Exercise Program,Pain Management Other Education Bed positioning, self- examination of habitual positioning and movement PT-OP-T Assessment and Plan Start: 10/25/22 08:09 Freq: Status: Active Protocol: Document 10/29/22 09:31 [facility] (Rec: 10/29/22 10:23 [facility] [id number]) Physical Therapy Assessment Rehab Potential Rehabilitation Potential Good Evaluation Complexity Number of Personal Factors/Comorbidities 1-2 Number of Body Systems Impaired 3 Impairments Impairments Activity Tolerance,Pain,Soft Tissue Mobility,Strength Goals 3 Impairment muscle tightness Impairment right QL, glut med, piriformis tightness and spasm Custodial Goal (LTG) Patient to demnstrate normal muscle tone without spasms or shortening right side LTG Duration 12/13/22 2 Impairment weakness Impairment weakness hip and core Short Term Goal (STG) Patient to be instructed in individualized progressive HEP to address weakness STG Duration 11/16/22 Custodial Goal (LTG) Patient to demonstrate 5/5 muscle strength throughout to allow her to return to all prior activities and be able to take care of her baby without increase in pain LTG Duration 12/13/22 1 Impairment Pain Impairment Right sided pain l/s and lateral hip which worsens throughout the day to 4/10 Custodial Goal (LTG) Decrease patient pain to allow her to tolerate a full day of usual activity without an increase in pain LTG Duration 12/13/22 Assessment Summary Assessment Patient presents to PT 9 months after vaginal delivery of her baby with persistent pain in right side of her low back, hip and buttock which started at approximately 8 months into her . She was given exercise at that time which helped some and she has resumed doing them but her pain persists. Evaluation revealed palpable tightness right quadratus lumborum gluteus medius, and piriformis. Decreased ROM right hamstring and left quad. Additionall presents with weak hip ER, extensors, and abductors and weakness in her core. Educated on bed positioning with pillow between knees and towel under side for improved alignment, reviewed prior HEP and modified for improved muscle activation, form, and alignment with addition of bird dog and sidelying hip abduction, single leg bridge. She was instructed in use of tennis or raquetball for self- massage tight muscles in supine with heelslide and hip ER/IR with good understanding. Feel she will benefit from PT for progression of ther ex, instruction in correct body mechanics especially related to the care of her baby, and manual soft tissue mob as indicated to improve tone and function. POC was discussed with patient and she was in agreement. Physical Therapy Plan Frequency and Duration Frequency of Treatment 2x/Week Duration of treatment (weeks) 6 Plan of Care Start Date 10/29/22 Plan of Care End Date 12/13/22 Therapeutic Interventions Therapeutic Interventions Home Exercise Program,Manual Therapy,Patient/Caregiver Education,Self-Care/Home Management,Soft Tissue Mobilization,Taping, Therapeutic Activities, Therapeutic Exercises Next Visit Focus/Plan Next Note Type Treatment Note Next Visit Plan Review HEP, add supine march, leg lowering, bug core core strengthening as tolerated. Educate in proper lifting and holding techniques for baby. DTM QL, glut med.
--- NOTE | 2022-10-29 13:13 | PT.OPPOC ---
Physical, Occupational & Speech Therapy At [facility] Current Diagnoses Low back pain, unspecified (10/29/22) Muscle spasm of back (10/29/22) Other specified disorders of muscle (10/29/22) Weakness (10/29/22) Visit Care Team Role Provider Type Nate Raygoza DO Attending Provider Physician Family Provider Primary Care Provider Referring Provider Specialty: Family Practice Address: [address] [place] [address], [facility] Email: [email or web address] Plan Of Care PT-OP-T Assessment and Plan Start: 10/25/22 08:09 Freq: Status: Active Protocol: Document 10/29/22 09:31 [facility] (Rec: 10/29/22 10:23 [facility] [id number]) Physical Therapy Assessment Rehab Potential Rehabilitation Potential Good Evaluation Complexity Number of Personal Factors/Comorbidities 1-2 Number of Body Systems Impaired 3 Impairments Impairments Activity Tolerance,Pain,Soft Tissue Mobility,Strength Goals 3 Impairment muscle tightness Impairment right QL, glut med, piriformis tightness and spasm [facility] Goal (LTG) Patient to demnstrate normal muscle tone without spasms or shortening right side LTG Duration 12/13/22 2 Impairment weakness Impairment weakness hip and core Short Term Goal (STG) Patient to be instructed in individualized progressive HEP to address weakness STG Duration 11/16/22 [facility] Goal (LTG) Patient to demonstrate 5/5 muscle strength throughout to allow her to return to all prior activities and be able to take care of her baby without increase in pain LTG Duration 12/13/22 1 Impairment Pain Impairment Right sided pain l/s and lateral hip which worsens throughout the day to 4/10 [employer]er Goal (LTG) Decrease patient pain to allow her to tolerate a full day of usual activity without an increase in pain LTG Duration 12/13/22 Assessment Summary Assessment Patient presents to PT 9 months after vaginal delivery of her baby with persistent pain in right side of her low back, hip and buttock which started at approximately 8 months into her . She was given exercise at that time which helped some and she has resumed doing them but her pain persists. Evaluation revealed palpable tightness right quadratus lumborum gluteus medius, and piriformis. Decreased ROM right hamstring and left quad. Additionall presents with weak hip ER, extensors, and abductors and weakness in her core. Educated on bed positioning with pillow between knees and towel under side for improved alignment, reviewed prior HEP and modified for improved muscle activation, form, and alignment with addition of bird dog and sidelying hip abduction, single leg bridge. She was instructed in use of tennis or raquetball for self- massage tight muscles in supine with heelslide and hip ER/IR with good understanding. Feel she will benefit from PT for progression of ther ex, instruction in correct body mechanics especially related to the care of her baby, and manual soft tissue mob as indicated to improve tone and function. POC was discussed with patient and she was in agreement. Physical Therapy Plan Frequency and Duration Frequency of Treatment 2x/Week Duration of treatment (weeks) 6 Plan of Care Start Date 10/29/22 Plan of Care End Date 12/13/22 Therapeutic Interventions Therapeutic Interventions Home Exercise Program,Manual Therapy,Patient/Caregiver Education,Self-Care/Home Management,Soft Tissue Mobilization,Taping, Therapeutic Activities, Therapeutic Exercises Next Visit Focus/Plan Next Note Type Treatment Note Next Visit Plan Review HEP, add supine march, leg lowering, bug core core strengthening as tolerated. Educate in proper lifting and holding techniques for baby. DTM QL, glut med. Plan of Care Dates Plan of Care Start Date 10/29/22 Plan of Care End Date 12/13/22 Electronically Signed by: Aspen Bernard PT 10/29/22 [id number] If you are in agreement with this Plan of Care, please return a signed and dated copy. I have reviewed this Plan of Care and certify that the skilled therapy services above are required to meet the patient?s needs. Physician Signature Date Printed Name and Credentials Clinical Instructor Signature Printed Name and Credentials
--- NOTE | 2022-11-02 09:31 | PT-OP ANOTE ---
cancelled via [employer]
--- NOTE | 2022-11-16 12:11 | PT-OP ANOTE ---
Pt cancelled for 4th consecutive tx since eval 10/29/22 via text in advance. ENGINE PILOT left message regarding policy attending 50% scheduled visits or potential could be DC and need new referrral to return. Reminded next appt on 11/23 to keep/ attend remaining appts going forward. Upon chart review her POC is due to on 12/13.
--- NOTE | 2022-11-23 12:32 | PT-OP ANOTE ---
Pt cancelled today's appt on 11/20 >24 hrs in advance. SWEEPER BRUSH MAKER MACHINE left message regarding have cancelled all appts since eval 10/29, reminded policy signed making >50% of appts scheduled or could be discharged. Asked to call us back to discuss reasoning of cancellations, provided SWEEPER BRUSH MAKER MACHINE Flory and PT Aspen's extensions to leave message if not at our desk. REminded of next appt 11/30 to please try to attend.
--- NOTE | 2022-11-30 13:20 | PT-OP ANOTE ---
Chart reviewed, pt cancelled today 6th consecutive visit with PT, via text response with no give reason. CAMERA REPAIRER called and spoke with pt, she works from home and with infant daughter challenging getting out for appts. She stated exercises given at eval aren't helping and back is feeling worse. She stated is not going to be able to make remaining appts when asked. CAMERA REPAIRER provided education would like to help improve decrease pain and allow mobility improvement but means attending PT appts, pt understood but reported unable to do so. CAMERA REPAIRER discussed will delete remaining appts and if she feels we can help her further to call dr and request new referral, pt verbalized understood and in agreement.
--- NOTE | 2022-12-03 11:42 | PT.OPDS ---
Current Diagnoses Low back pain, unspecified (10/29/22) Muscle spasm of back (10/29/22) Other specified disorders of muscle (10/29/22) Weakness (10/29/22) Visit Care Team Role Provider Type Nate Raygoza DO Attending Provider Physician Family Provider Primary Care Provider Referring Provider Specialty: Family Practice Address: [address] [place] [address] Email: [email or web address] Number Visit Number 1 Discharge Summary PT-OP-B Current Condition Start: 10/25/22 08:09 Freq: Status: Active Protocol: Document 10/29/22 09:31 [facility] (Rec: 10/29/22 10:23 [facility] [id number]) Current Condition History of Current Condition Onset Date during preganancy Current Complaints right sided hip and lumbar pain History of Current Condition right sided back and flank pain, first started 8 months , had 2 treatments of PT, then gave . Daughter is now 9 months old. Reports gradually throughout the day pain gets worse. Improves with Advil, Tylenol. Heat/ice worsens the pain. Also left knee pain causisng her to weight bear on her right side. Does prior exercises for back and knee. Prior Treatments and Tests no imaging Future Testing and Treatments Planned return to doctor after PT. Treatment Goals Patient/Caregiver Goals decrease pain or eliminate, eliminate need for pain medication. Prior Functional Status Baseline Function- ADL's Independent Baseline Function- Mobility Independent Baseline Function- Gait no difficulty Current Functional Impairments (Reported) Functional Limitations- ADL's increased pain as day progresses Functional Limitations- Mobility/Gait increased pain as day progresses Personal Factors Other Personal Factors That May Effect Patient has 9 month old baby, Therapy/Recovery lifting PT-OP-C Subjective Start: 10/25/22 08:09 Freq: Status: Active Protocol: Document 10/29/22 09:31 [facility] (Rec: 10/29/22 13:12 [facility] [id number]) OP-PT Pain Assessment Pain Assessment Grid Paper Pain Assessment Grid Completed Yes Location right l/s, hip, buttock Intensity 4 Scale Used Numeric (0 - 10) Description Aching,Tender,Tightness Frequency Frequent Pain Aggravating Factors Activity Other Pain Aggravating Factors as day progresses Home Pain Medication Use Pain Medications Used Yes Home Pain Medication Frequency occasionally PT-OP-G Mobility & Gait Start: 10/25/22 08:09 Freq: Status: Active Protocol: Document 10/29/22 09:31 [facility] (Rec: 10/29/22 13:12 [facility] [id number]) OP Gait Assessment Gait Gait Assistance Required: Independent Assistive Devices Assistive Device None Gait Deviations General Gait Pattern Lateral Trunk Lean Factors Limiting Gait Function Factors Limiting Gait Function Pain Comments Gait Comments leans right, left shoulder elevated, dec arm swing right, decreased stance time right PT-OP-H Neuro Start: 10/25/22 08:09 Freq: Status: Active Protocol: Document 10/29/22 09:31 [facility] (Rec: 10/29/22 13:12 [facility] [id number]) Sensation Evaluation Gross Sensation Gross Sensation WNL Deep Tendon Reflex & Clonus Assessment Deep Tendon Reflex Bilateral Patellar Deep Tendon Reflex 2+ Normal PT-OP-J Posture/Palpation/Skin Start: 10/25/22 08:09 Freq: Status: Active Protocol: Document 10/29/22 09:31 [facility] (Rec: 10/29/22 13:12 [facility] [id number]) Posture Evaluation Position Standing Head/C-Spine Posture Forward Head L-Spine Posture Increased Lordosis Shoulder Posture (L) Elevated Scapula Posture (L) Protracted,(R) Protracted Arm Posture (L) Internally Rotated,(R) Internally Rotated Pelvis Posture Anteriorly Tilted Weight Distribution Weight Shifted Left Palpation Assessment Location glut med, QL, pir, lumbar paraspinals Palpation Findings Soft Tissue Tightness,Spasm, Trigger Point PT-OP-K Range of Motion Start: 10/25/22 08:09 Freq: Status: Active Protocol: Document 10/29/22 09:31 [facility] (Rec: 10/29/22 13:12 [facility] [id number]) Lumbar Spine Range of Motion Lumbar Spine Active Testing Position Standing Comments WNL all motions, denied pain. Patient hypermobile but left sidebending less than right with patient reporting feeling stretch sensation in area of usual pain PT-OP-L Special Tests Start: 10/25/22 08:09 Freq: Status: Active Protocol: Document 10/29/22 09:31 [facility] (Rec: 10/29/22 13:12 [facility] [id number]) Special Tests Lumbar Spine Special Tests Straight Leg Raise Test Results neg Slump Test Results neg Hip Special Tests JAIME Test Results neg scour Test Results neg PT-OP-M Strength Start: 10/25/22 08:09 Freq: Status: Active Protocol: Document 10/29/22 09:31 [facility] (Rec: 10/29/22 13:12 [facility] [id number]) Trunk Strength Trunk Manual Muscle Testing Flexion 4 Good Extension 4 Good Core Stabilization dec Hip Strength Hip Manual Muscle Testing Right Flexion (L2) 4+ Good+ Extension (S1) 4- Good- Abduction 4- Good- Adduction 3+ Fair+ Internal Rotation 4 Good Left Flexion (L2) 4+ Good+ Extension (S1) 4- Good- Abduction 4- Good- External Rotation 3+ Fair+ Internal Rotation 4 Good Knee Strength Knee Manual Muscle Testing kranthi Flexion (S2) 5 Normal Extension (L3) 5 Normal PT-OP-T Assessment and Plan Start: 10/25/22 08:09 Freq: Status: Active Protocol: Document 12/03/22 11:41 [facility] (Rec: 12/03/22 11:42 [facility] [id number]) Physical Therapy Plan Discharge Physical Therapy Discharge Reasons Patient Request Discharge Comments seen for eval only. EPITAXIAL REACTOR TECHNICIAN spoke with patient by phone but doesn't want to do any further PT appointments.
== END 2022-12-08 14:28 | disposition home or self-care (01) ==
LOC: PHYS 09:21
PROVIDERS: Family Provider Family Medicine; PCP Family Medicine; Referring Provider Family Medicine; Visit Provider Family Medicine
DX: M54.50 Low back pain, unspecified (principal); M62.89 Other specified disorders of muscle; R53.1 Weakness; M62.830 Muscle spasm of back
CPT/HCPCS: 97161; 97535

== ENCOUNTER 2023-01-12 10:54 | Emergency (ER) | payer OTHER, SELFPAY ==
[2023-01-12 11:05] VITALS: BP 133/79; PULSE 99; RESP 18; TEMP 37.2; O2SAT 99; BMI 19.3
--- NOTE | 2023-01-12 11:09 | ED_ITS ---
HPI - Abdominal Pain General Chief Complaint: Urogenital-Female Stated Complaint: stabbing Rside appendix pain/increasing T-1/UTI Time Seen by Provider: 01/12/23 11:03 Source: patient Mode of arrival: Ambulatory History of Present Illness HPI narrative: Patient here for right flank pain with nausea. No urinary complaints. Had sudden-onset 1:00 a.m. this morning at home. Has been waxing and waning. Nothing makes it better or worse. Denies any past abdominal surgical history. LMP now, denies . No fever chills. No urinary complaints. No hematuria frequency or urgency. No prior history of kidney stones Related Data Previous Rx's Medication Instructions Recorded ibuprofen 600 mg tablet 600 mg PO Q6H PRN pain #60 tabs 01/20/22 bupropion HCl 150 mg 24 hr tablet, 300 mg (2 x 150 mg) PO DAILY #60 03/10/22 extended release (Wellbutrin XL) tabs norgestimate 0.25 mg-ethinyl 1 tab PO DAILY #84 tabs 08/11/22 estradiol 35 mcg tablet (Sprintec (28)) naproxen 500 mg tablet 500 mg PO BID #40 tabs 12/15/22 cephalexin 500 mg capsule 500 mg PO QID #20 caps 01/12/23 phenazopyridine 100 mg tablet 100 mg PO TID PRN pain 6 doses #6 01/12/23 (Pyridium) tabs Allergies Allergy/AdvReac Type Severity Reaction Status Date / Time No Known Drug Allergies Allergy Verified 12/24/22 15:56 Review of Systems Review of Systems Narrative: GENERAL: negative chills, fatigue, malaise, fever, sweats. HEENT: negative sinus pain, ear pain, sore throat RESPIRATORY: negative dyspnea, cough CARDIOVASCULAR: negative chest pain, palpitations GASTROINTESTINAL: Positive nausea, negative vomiting, positive abdominal pain : negative dysuria, frequency, hematuria MUSCULOSKELETAL: negative muscle or bony pain SKIN: negative rash, skin lesions NEUROLOGIC: negative weakness, numbness ROS Unobtainable: All systems reviewed & are unremarkable except as noted in HPI and below Patient History Medical History Tendinitis of right forearm Pelvic floor dysfunction in female Lower back pain Anemia Contraception management Left anterior knee pain Atypical nevi Encounter for well adult exam with abnormal findings Ringworm Eczema UTI (urinary tract infection) Insomnia Depression Anxiety Surgical History No history of previous surgery Family History Mother Autoimmune disease Endometriosis CRPS (complex regional pain syndrome) Cancer Mental health problem Sister POTS (postural orthostatic tachycardia syndrome) Endometriosis Mental health problem Chronic migraine Grandfather Diabetes mellitus Hyperlipidemia Hypertension Stroke Grandfather Clotting disorder Heart disease Hyperlipidemia Hypertension Stroke Mental health problem History of heart attack Father Mental health problem Sister Mental health problem Grandmother Cancer S/P removal of lung Grandmother Diabetes mellitus Hypertension Hyperlipidemia Social History marital status: number of children: 0 lives independently: Yes housing: apartment pets and animals: Yes (dogs, cat - aware of toxo) education level: high school occupational status: unemployed current occupational exposures/hazards: No special nicholas needs: No seatbelt use: always water heater temp set < 120 deg: Yes working smoke detector in home: Yes carbon monox detector in home: Yes firearms in home: Yes firearms unloaded and locked: Yes do you feel safe at home: Yes Smoking Status: Never smoker second hand exposure: Yes () alcohol intake: former substance use type: does not use during the past year weight has: remained stable well-balanced diet: daily or most days daily servings fruits/ve-4 caffeine: Yes (200mg a day) Type(s) of exercise: walking Smoking Status: Never smoker alcohol intake frequency: other Substance Use Type: does not use Exam Narrative Exam Narrative: GENERAL: in no distress, not toxic not dyspneic HEAD: Normocephalic. EYES: Pupils equal round ENT: Mucous membranes moist. NECK: Trachea midline. CARDIOVASCULAR: Regular rate and rhythm RESPIRATORY: Clear to auscultation. Breath sounds equal bilaterally. No wheezes, rales, or rhonchi. GASTROINTESTINAL: Abdomen soft, non-tender, abdomen soft flat nontender no McBurney point tenderness. No pain out portion exam. No CVA tenderness. Bowel sounds are present. No peritoneal signs. EXTREMITIES: No gross deformities. BACK: No flank tenderness. NEURO: AOx4. SKIN: Warm and dry PSYCH: Not anxious, is cooperative Initial Vital Signs Initial Vital Signs: Vital Signs Temperature 99.0 F 01/12/23 11:05 Pulse Rate 99 H 01/12/23 11:05 Respiratory Rate 18 01/12/23 11:05 Blood Pressure 133/79 01/12/23 11:05 Pulse Oximetry 99 01/12/23 11:05 Oxygen Delivery Method Room Air 01/12/23 11:05 Course Orders Ordered: ED Orders 01/12/23 11:08 Urine Culture Stat Urine Microscopic Stat 01/12/23 11:20 CBC Auto Diff [Complete Blood Count AUTO DIFF] Stat CMP [Comprehensive Metabolic Panel] Stat 01/12/23 11:27 CT abdomen pelvis w con Stat Discontinued Medications Cephalexin HCl (Cephalexin 250 Mg Capsule) 500 mg PO NOW ONE Stop: 01/12/23 13:01 Last Admin: 01/12/23 13:14 Dose: 500 mg Documented By: EMILY Sodium Chloride (Normal Saline 0.9%) 500 mls @ 1,000 mls/hr IV BOLUS ONE Stop: 01/12/23 11:37 Last Infusion: 01/12/23 12:04 Dose: Infused Documented By: Admin: 01/12/23 11:30 Dose: 1,000 mls/hr Documented By: ANA ROSA Ketorolac Tromethamine (Ketorolac 30 Mg/Ml Vial) 15 mg IV NOW ONE Stop: 01/12/23 11:10 Last Admin: 01/12/23 11:30 Dose: 15 mg Documented By: ANA ROSA Ondansetron HCl (Ondansetron 4 Mg/2 Ml Inj) 4 mg IV NOW ONE Stop: 01/12/23 11:10 Last Admin: 01/12/23 11:30 Dose: 4 mg Documented By: ANA ROSA Phenazopyridine HCl (Phenazopyridine 100 Mg Tablet) 100 mg PO NOW ONE Stop: 01/12/23 13:01 Last Admin: 01/12/23 13:14 Dose: 100 mg Documented By: EMILY Vital Signs Vital signs: Vital Signs - 8 hr 01/12/23 11:05 01/12/23 12:28 01/12/23 12:30 Temperature 99.0 F Pulse Rate 99 H 69 72 Respiratory Rate 18 Blood Pressure 133/79 Pulse Oximetry 99 99 99 Oxygen Delivery Method Room Air 01/12/23 12:30 01/12/23 13:00 01/12/23 13:00 Temperature Pulse Rate 64 Respiratory Rate Blood Pressure 113/67 93/52 L Pulse Oximetry 97 Oxygen Delivery Method MDM - Abdominal Pain Lab Data 01/12/23 11:20 01/12/23 11:20 Labs: Lab Results 01/12/23 01/12/23 Range/Units 11:08 11:20 WBC 7.7 (4.5-11.0) X10^3/uL RBC 4.53 (4.0-5.2) X10^6/uL Hgb 13.8 (12.0-16.0) g/dL Hct 39.7 (36-46) % MCV 87.5 (80-100) fL MCH 30.4 (26-34) PG MCHC 34.7 (30-36) % RDW 13.2 (11.6-14.8) % Plt Count 310 (150-400) X10^3/uL Neut % (Auto) 72.1 (50-75) % Lymph % (Auto) 20.3 L (25-40) % [place] % (Auto) 6.6 (3-14) % Eos % (Auto) 0.4 L (2-4) % Baso % (Auto) 0.6 (0-2) % Neut # (Auto) 5600 (8550-4672) /uL Lymph # (Auto) 1600 (5138-3748) /uL [place] # (Auto) 500 (0-900) /uL Eos # (Auto) 0 (0-450) /uL Baso # (Auto) 0 (0-100) /uL Sodium 140 (137-145) mmol/L Potassium 3.7 (3.4-5.1) mmol/L Chloride 107 (98-107) mmol/L Carbon Dioxide 22 (22-32) mmol/L BUN 5 L (7-17) mg/dL Creatinine 0.55 (0.52-1.04) mg/dL Estimated GFR > 60 (>60) mL/min BUN/Creatinine Ratio 9.1 (6-22) Glucose 98 (70-100) mg/dL Calcium 9.4 (8.4-10.2) mg/dL Total Bilirubin 0.4 (0.2-1.3) mg/dL AST 26 (14-36) IU/L ALT 36 H (<35) IU/L Alkaline Phosphatase 53 (38-126) U/L Total Protein 7.4 (6.3-8.2) g/dL Albumin 4.3 (3.5-5.0) g/dL Globulin 3.1 (1.7-4.1) g/dL Albumin/Globulin Ratio 1.4 (1.0-2.8) Urine RBC 30-100/hpf H (0-5/HPF) Urine WBC 5-10/hpf H (0-5/HPF) Ur Squamous Epith Cells 1-5 /hpf (0-5/HPF) Urine Bacteria Few (2-10) H (None) Ur Culture Indicated? Specimen cultured Point of care testing: Point of Care Testing Test Results Negative Urine Dip Bedside Urine Glucose Negative Bedside Urine Bilirubin - Negative Bedside Urine Ketone ++ 40 Urine Specific [place] 1.015 Bedside Urine Occult Blood +++ Bedside Urine pH 7.0 Bedside Urine Protein +++ 300 Bedside Urine Urobilinogen - Negative Bedside Urine Nitrite - Negative Bedside Urine Leukocytes ++ [address] scan - abdomen/pelvis: Radiologist's Impression: [place] [address] CT Scan Report Signed Patient: Katrin Spann MR#: [id number] : 2000 Acct:[id number] Age/Sex: 22 / F Date of Service: 01/12/23 Loc: ED Accession Number: [id number] Procedure: CT abdomen pelvis w con Ordering Provider: Tera Mcadams MD PROCEDURE: CT ABDOMEN PELVIS W CON INDICATIONS: IV contrast only/right side pain TECHNIQUE: After the administration of intravenous contrast, axial sections acquired from the lung bases to the pubic symphysis. Coronal and sagittal reformats were performed. For radiation dose reduction, the following was used: automated exposure control, adjustment of mA and/or kV according to patient size. COMPARISON: None. FINDINGS: Image quality: Good Lower chest: Lung bases appear unremarkable. Heart size is within normal limits. No hiatal hernia. Solid organs: Masslike hypoattenuation adjacent to the falciform ligament, in the typical location for focal fat. Liver is otherwise unremarkable. Gallbladder is unremarkable. No pathologic dilation of the biliary system or pancreatic duct. No splenomegaly. A subcentimeter hypoattenuating at the top this spleen is indeterminate, too small to characterize. No adrenal nodules. No hydronephrosis. Bilateral urothelial enhancement and thickening. No obstructing calcified stone is identified. Vessels and lymph nodes: The main portal vein is patent. No abdominal aortic aneurysm. No pathologic lymph nodes by size criteria. Bowel and peritoneum: No evidence of small bowel obstruction. No intra- abdominal abscess or ascites. There is moderate fecal loading, particularly distally. Appendix is nondilated. Body wall: Tiny fat containing umbilical hernia. Pelvis: Hyperemic reproductive organs and prominent pelvic vessels. Prominent adnexal structures. A tampon is in place. Moderate wall thickening of the bladder with hyperemia. This is not well evaluated due to under distension. Bones: No acute or suspicious osseous findings. IMPRESSION: Bladder wall thickening, hyperemia, with extension to the urothelium of the ureters, suspicious for ascending genitourinary infection. Correlate with urinalysis. No obstructing calcified stone is identified. Prominent hyperemic reproductive organs and surrounding vessels possibly physiologic, consider correlation with ultrasound if there is concern for pelvic pathology. Appendix is seen and is nondilated. Masslike hypoattenuation in the liver adjacent to the falciform ligament, probably focal fat. There is also indeterminate subcentimeter hypoattenuation at the top of the spleen. These are probably benign incidental findings, however if there is a personal history or risk of malignancy, MRI could confirm. Other findings as above. Dictated by: Camron Herzog M.D. on 01/12/2023 at 11:37 Approved by: Camron Herzog M.D. on 01/12/2023 at 11:43 [facility] [place] Narrative Medical decision making narrative: Patient here for right flank pain with nausea. No urinary complaints. Had sudden-onset 1:00 a.m. this morning at home. Has been waxing and waning. Nothing makes it better or worse. Denies any past abdominal surgical history. LMP now, denies . No fever chills. No urinary complaints. No hematuria frequency or urgency. No prior history of kidney stones After history and exam CBC CMP urinalysis test IV normal saline Toradol Zofran CT KUB [facility] [place] CC: Right flank pain Complicating co-morbidities: None Data collected from: Patient Medical records reviewed: No recent visit for this complaint Differential considered: Includes but not limited to appendicitis kidney stone pyelonephritis UTI Exam documented above, pertinent findings include: Nontender abdomen Lab Test results independently reviewed as above. Pertinent findings: WBC 7.7 sodium 140 potassium 3.7 GFR greater than 60 urinalysis 5-10 WBC, ketones +40, positive leukocyte esterase Imaging studies independently reviewed: CT abdomen pelvis no acute findings Treatments: Toradol Zofran normal saline Re-evaluations: Reviewed results with patient. She says she has had urinary frequency and urgency and dysuria. This does correlate with the CT imaging. She agrees for treatment with Keflex Pyridium for UTI. I did review CT image results, she has no history of cancer or family history of cancer. She will follow up in [address] scan imaging of the abdomen pelvis. Return precautions reviewed with her. She desires discharge home. Patient in no distress. Discussion: Appropriate for discharge home. Exam and laboratory studies imaging otherwise reassuring. Reviewed with patient follow up imaging and with primary care as well. Antibiotics have been started. Patient in no distress. Return precautions reviewed with her. She desires discharge home. Nontoxic. Diagnosis: Cystitis Discharge Plan Departure Patient Disposition: Home Clinical Impression: UTI (urinary tract infection) Instructions: DI for Urinary Tract Infection (UTI) Activity Restrictions/Additional Instructions: Please see family doctor in a week for re-evaluation. Insert follow-up. Prescription antibiotics has been sent to your [facility] pharmacy. Please be sure to continue your medications. Keep well hydrated. Return if worse if any questions or concerns. You will need repeat CT scan imaging of abdomen pelvis in 6 months to compared to today as we discussed. Prescriptions: New phenazopyridine [Pyridium] 100 mg tablet 100 mg PO TID PRN (Reason: pain) Qty: 6 0RF cephalexin 500 mg capsule 500 mg PO QID Qty: 20 0RF No Action naproxen 500 mg tablet 500 mg PO BID Qty: 40 0RF Rx Instructions: Take with food; do not take with other NSAIDS bupropion HCl [Wellbutrin XL] 150 mg tablet extended release 24 hr 300 mg PO DAILY Qty: 60 3RF norgestimate-ethinyl estradiol [Sprintec (28)] 0.25-35 mg-mcg tablet 1 tab PO DAILY Qty: 84 3RF ibuprofen 600 mg tablet 600 mg PO Q6H PRN (Reason: pain) Qty: 60 0RF Referrals: Nate Raygoza, [Primary Care Provider] - Stand Alone Forms: Patient Portal/API
[2023-01-12 11:20] LABS: Bacteria Urine Few (2-10); Culture Indicated Urine Specimen Cultured; RBC Urine 30-100/HPF (0-5/HPF); Squamous Epithelial Cell Urine 1-5 /HPF (0-5/HPF); WBC Urine 5-10/HPF (0-5/HPF)
--- NOTE | 2023-01-12 11:27 | DI.CT.S_ITS ---
PROCEDURE: CT ABDOMEN PELVIS W CON INDICATIONS: IV contrast only/right side pain TECHNIQUE: After the administration of intravenous contrast, axial sections acquired from the lung bases to the pubic symphysis. Coronal and sagittal reformats were performed. For radiation dose reduction, the following was used: automated exposure control, adjustment of mA and/or kV according to patient size. COMPARISON: None. FINDINGS: Image quality: Good Lower chest: Lung bases appear unremarkable. Heart size is within normal limits. No hiatal hernia. Solid organs: Masslike hypoattenuation adjacent to the falciform ligament, in the typical location for focal fat. Liver is otherwise unremarkable. Gallbladder is unremarkable. No pathologic dilation of the biliary system or pancreatic duct. No splenomegaly. A subcentimeter hypoattenuating at the top this spleen is indeterminate, too small to characterize. No adrenal nodules. No hydronephrosis. Bilateral urothelial enhancement and thickening. No obstructing calcified stone is identified. Vessels and lymph nodes: The main portal vein is patent. No abdominal aortic aneurysm. No pathologic lymph nodes by size criteria. Bowel and peritoneum: No evidence of small bowel obstruction. No intra-abdominal abscess or ascites. There is moderate fecal loading, particularly distally. Appendix is nondilated. Body wall: Tiny fat containing umbilical hernia. Pelvis: Hyperemic reproductive organs and prominent pelvic vessels. Prominent adnexal structures. A tampon is in place. Moderate wall thickening of the bladder with hyperemia. This is not well evaluated due to under distension. Bones: No acute or suspicious osseous findings. IMPRESSION: Bladder wall thickening, hyperemia, with extension to the urothelium of the ureters, suspicious for ascending genitourinary infection. Correlate with urinalysis. No obstructing calcified stone is identified. Prominent hyperemic reproductive organs and surrounding vessels possibly physiologic, consider correlation with ultrasound if there is concern for pelvic pathology. Appendix is seen and is nondilated. Masslike hypoattenuation in the liver adjacent to the falciform ligament, probably focal fat. There is also indeterminate subcentimeter hypoattenuation at the top of the spleen. These are probably benign incidental findings, however if there is a personal history or risk of malignancy, MRI could confirm. Other findings as above. Dictated by: Camron Herzog M.D. on 01/12/2023 at 11:37 Approved by: Camron Herzog M.D. on 01/12/2023 at 11:43
[2023-01-12] MEDS: ONDANSETRON 4 MG/2 ML INJ IV (11:30)
[2023-01-12] MEDS: KETOROLAC 30 MG/ML VIAL 15 MG IV (11:30)
[2023-01-12] MEDS: SODIUM CHLORIDE 0.9% 500 ML 1000 ML IV (11:30)
[2023-01-12 11:39] LABS: Add Manual Diff / Slide Review NO; Basophils Absolute Auto 0 /uL (0-100); Basophils Percent Auto 0.6 % (0-2); Eosinophils Absolute Auto 0 /uL (0-450); Eosinophils Percent Auto 0.4 % (2-4); Hematocrit 39.7 % (36-46); Hemoglobin 13.8 g/dL (12.0-16.0); Lymphocytes Absolute Auto 1600 /uL (1100-4500); Lymphocytes Percent Auto 20.3 % (25-40); Mean Corpuscular HGB Conc 34.7 % (30-36); Mean Corpuscular Hemoglobin 30.4 PG (26-34); Mean Corpuscular Volume 87.5 fL (80-100); Monocytes Absolute Auto 500 /uL (0-900); Monocytes Percent Auto 6.6 % (3-14); Neutrophils Absolute Auto 5600 /uL (1500-7000); Neutrophils Percent Auto 72.1 % (50-75); Platelet Count 310 X10^3/uL (150-400); Red Blood Cell Count 4.53 X10^6/uL (4.0-5.2); Red Cell Distribution Width 13.2 % (11.6-14.8); White Blood Cell Count 7.7 X10^3/uL (4.5-11.0)
[2023-01-12 11:41] LABS: Alanine Aminotransferase 36 IU/L (<35); Albumin 4.3 g/dL (3.5-5.0); Albumin Globulin Ratio 1.4 (1.0-2.8); Alkaline Phosphatase 53 U/L (38-126); Aspartate Aminotransferase 26 IU/L (14-36); BUN Creatinine Ratio 9.1 (6-22); Bilirubin Total 0.4 mg/dL (0.2-1.3); Blood Urea Nitrogen 5 mg/dL (7-17); Calcium 9.4 mg/dL (8.4-10.2); Carbon Dioxide 22 mmol/L (22-32); Chloride 107 mmol/L (98-107); Estimated Glomerular Filt Rate > 60 mL/min (>60); Globulin 3.1 g/dL (1.7-4.1); Glucose 98 mg/dL (70-100); HEMOLYSIS < 15 (0-50); Potassium 3.7 mmol/L (3.4-5.1); Sodium 140 mmol/L (137-145); Total Protein 7.4 g/dL (6.3-8.2)
[2023-01-12 12:28] VITALS: PULSE 69; O2SAT 99
[2023-01-12 12:30] VITALS: BP 113/67; PULSE 72; O2SAT 99
[2023-01-12 13:00] VITALS: BP 93/52; PULSE 64; O2SAT 97
[2023-01-12] MEDS: cephALEXin 250 MG CAPSULE 500 MG PO (13:14)
[2023-01-12] MEDS: PHENAZOPYRIDINE 100 MG TABLET PO (13:14)
== END 2023-01-12 13:17 | disposition home or self-care (01) ==
PROVIDERS: Emergency Provider Emergency Medicine; Family Provider Family Medicine; PCP Family Medicine
DX: N39.0 Urinary tract infection, site not specified (principal)
CPT/HCPCS: 36415; 74177; 80053; 81003; 81015; 81025; 85025; 87077; 87086; 96361; 96374; 96375; 99284; J1885; J2405; Q9967

== ENCOUNTER → 2023-07-30 11:15 | Outpatient (CLI) | payer OTHER, SELFPAY ==
--- NOTE | 2023-07-30 11:16 | DI.CT.S_ITS ---
PROCEDURE: CT ABDOMEN PELVIS W CON INDICATIONS: Abnormal CT 01/12/23 follow up TECHNIQUE: After the administration of intravenous contrast, axial sections acquired from the lung bases to the pubic symphysis. Coronal and sagittal reformats were performed. For radiation dose reduction, the following was used: automated exposure control, adjustment of mA and/or kV according to patient size. COMPARISON: [facility], CT, CT ABDOMEN PELVIS W CON, 01/12/2023, 11:23. FINDINGS: Image quality: Diagnostic. Lower Chest: No significant findings. ABDOMEN: Liver: No solid mass. Focal subcapsular hypoattenuation adjacent to the falciform ligament, stable. Gallbladder: No radiopaque gallstones or wall thickening. Biliary ducts: No biliary dilation. Pancreas: No ductal dilation. Spleen: Size is within normal limits. Previously seen subcentimeter hypoattenuation in the superior aspect of the spleen is less conspicuous compared to prior and favored to be benign. Adrenal Glands: No adrenal nodules. Kidneys and Ureters: No hydroureteronephrosis or enhancement. No solid mass. No complex renal cystic lesion which requires follow up. Stomach and Bowel: No hiatal hernia. Stomach is decompressed, limiting evaluation, but appears grossly normal. Small and large bowel is normal in caliber, without obstruction. Peritoneum: No abnormal intraperitoneal fluid. No free air. Ventral Wall: No significant ventral hernia. Abdominal Nodes: No retroperitoneal or mesenteric adenopathy by size criteria. Vessels: Aorta and inferior vena cava are normal in size. Proximal mesenteric vessels are patent. Patent hepatic, portal, splenic and bilateral renal veins. PELVIS: Pelvic Organs: Heterogeneous appearance of the uterus with fluid in the endometrial complex. Tampon is present. Bladder: No bladder wall thickening, accounting for underdistention. Previously seen mucosal hyperenhancement of the bladder is no longer seen. Pelvic Nodes: No enlarged lymph nodes. Miscellaneous: No inguinal hernias are seen. Bones: No aggressive osseous abnormality. No acute fracture. IMPRESSION: 1. No hydroureteronephrosis or enhancement. Previously seen mucosal hyperenhancement of the bladder is no longer seen suggestive of resolution of previous cystitis. 2. Stable focal hepatic subcapsular hypoattenuation adjacent to the falciform ligament compatible with focal fat. 3. Previously seen subcentimeter hypoattenuation in the superior aspect of the spleen is less conspicuous, favored to be benign. 4. Heterogeneous appearance of the uterus with fluid in the endometrial complex with tampon in place, likely secondary to menstruation. Dictated by: Sathish Gaytan M.D. on 07/30/2023 at 13:44 Approved by: Sathish Gaytan M.D. on 07/30/2023 at 13:49
== END ==
PROVIDERS: Family Provider Family Medicine; PCP Family Medicine; Referring Provider Family Medicine; Visit Provider Family Medicine
DX: Z08 Encounter for follow-up examination after completed treatment for malignant neoplasm (principal); R10.11 Right upper quadrant pain; Z85.40 Personal history of malignant neoplasm of unspecified female genital organ
CPT/HCPCS: 74177; Q9967

== ENCOUNTER 2023-09-21 17:05 | Emergency (ER) | payer OTHER, SELFPAY ==
--- NOTE | 2023-09-21 17:07 | ED_ITS ---
HPI - Extremity Problem <Maxwell Keys PA-C - Last Filed: 09/21/23 17:46> General Chief complaint: Extremity Injury, Upper Stated complaint: rt pointer finger inj Time Seen by Provider: 09/21/23 17:07 History of Present Illness HPI Narrative: This is a 23-year-old female presents to the emergency department due to right 2nd digit injury. Patient accidentally slammed the car door on her finger. She was reporting pain at primarily the DIP joint of the 2nd digit. States she was unable to move it secondary to the pain. Denies any significant numbness. Unsure of last tetanus. Related Data Previous Rx's Medication Instructions Recorded ibuprofen 600 mg tablet 600 mg PO Q6H PRN pain #60 tabs 01/20/22 norgestimate 0.25 mg-ethinyl 1 tab PO DAILY #84 tabs 08/11/22 estradiol 35 mcg tablet (Sprintec (28)) bupropion HCl 150 mg 24 hr tablet, 150 mg PO QAM #30 tabs 07/12/23 extended release Allergies Allergy/AdvReac Type Severity Reaction Status Date / Time No Known Drug Allergies Allergy Verified 07/12/23 10:05 Review of Systems <Maxwell Keys PA-C - Last Filed: 09/21/23 17:46> Review of Systems Narrative: GENERAL: Denies chills, fatigue, malaise, fever, sweats. HEENT: Denies sinus pain, ear pain, sore throat, difficulty swallowing, dizziness. RESPIRATORY: Denies dyspnea, cough, wheezing, hemoptysis, sputum. CARDIOVASCULAR: Denies chest pain, palpitations, orthopnea, edema, GASTROINTESTINAL: Denies nausea, vomiting, abdominal pain, diarrhea, constipation, melena. : Denies dysuria, frequency, incontinence, hematuria, urinary retention. MUSCULOSKELETAL: Right 2nd digit pain SKIN: Denies rash, skin lesions, or other NEUROLOGIC: Denies weakness, headache, numbness, change in speech, confusion, seizures, incoordination. PSYCHIATRIC: No concerning psychosocial issues. 12 point review of systems is negative except for those stated above Patient History <Maxwell Keys PA-C - Last Filed: 09/21/23 17:46> Medical History (Updated 09/21/23 @ 17:46 by Maxwell Keys PA-C) Frequent UTI Hepatic cyst Abdominal pain Tendinitis of right forearm Pelvic floor dysfunction in female Lower back pain Anemia Contraception management Left anterior knee pain Atypical nevi Encounter for well adult exam with abnormal findings Ringworm Eczema UTI (urinary tract infection) Insomnia Depression Anxiety Surgical History No history of previous surgery Family History (Updated 08/24/23 @ 20:17 by Carolann Farley) Mother Autoimmune disease Endometriosis CRPS (complex regional pain syndrome) Mental health problem History of hysterectomy Ovarian cancer Diabetes mellitus Sister POTS (postural orthostatic tachycardia syndrome) Endometriosis Mental health problem Chronic migraine Grandfather Diabetes mellitus Hyperlipidemia Hypertension Stroke Cancer Heart disease Grandfather Clotting disorder Heart disease Hyperlipidemia Hypertension Stroke Mental health problem History of heart attack Father Mental health problem Sister Mental health problem Grandmother Cancer S/P removal of lung Grandmother Diabetes mellitus Hypertension Hyperlipidemia Brother Mental health problem Social History marital status: number of children: 0 lives independently: Yes housing: apartment pets and animals: Yes (dogs, cat - aware of toxo) education level: high school occupational status: unemployed current occupational exposures/hazards: No special nicholas needs: No seatbelt use: always water heater temp set < 120 deg: Yes working smoke detector in home: Yes carbon monox detector in home: Yes firearms in home: Yes firearms unloaded and locked: Yes do you feel safe at home: Yes Smoking Status: Never smoker second hand exposure: Yes () alcohol intake: former substance use type: does not use during the past year weight has: remained stable well-balanced diet: daily or most days daily servings fruits/ve-4 caffeine: Yes (200mg a day) Type(s) of exercise: walking Smoking Status: Never smoker alcohol intake frequency: other Substance Use Type: does not use Exam <Maxwell Keys PA-C - Last Filed: 09/21/23 17:46> Narrative Exam Narrative: GENERAL: Well-developed patient, in mild distress. HEAD: Atraumatic. Normocephalic. EYES: Pupils equal round and reactive. Extraocular motions intact. No scleral icterus. No injection or drainage. ENT: Nose without bleeding, purulent drainage. Throat without erythema, tonsillar hypertrophy or exudate. Airway patent. NECK: Trachea midline. Non tender EXTREMITIES: Mild edema to the distal portion of the right 2nd digit. Decreased range of motion at the DIP joint secondary to pain. Very superficial abrasion to the dorsal aspect of the joint. NEURO: AOx3. SKIN: No rash or erythema of visible areas Initial Vital Signs Initial Vital Signs: Vital Signs Temperature 97.4 F L 09/21/23 17:09 Pulse Rate 84 09/21/23 17:09 Respiratory Rate 18 09/21/23 17:09 Blood Pressure 113/76 09/21/23 17:09 Pulse Oximetry 100 09/21/23 17:09 Oxygen Delivery Method Room Air 09/21/23 17:09 <Elva Jang MD - Last Filed: 09/23/23 00:54> Initial Vital Signs Initial Vital Signs: Vital Signs Temperature 97.4 F L 09/21/23 17:09 Pulse Rate 84 09/21/23 17:09 Respiratory Rate 18 09/21/23 17:09 Blood Pressure 113/76 09/21/23 17:09 Pulse Oximetry 100 09/21/23 17:09 Oxygen Delivery Method Room Air 09/21/23 17:09 Course <Maxwell Keys PA-C - Last Filed: 09/21/23 17:46> Orders Ordered: Discontinued Medications Diphtheria/Tetanus/Acell Pertussis (Tet,Diph,Pertuss(Acell),Vac/Pf 0.5 Ml Syringe) 0.5 ml IM .ONCE ONE Stop: 09/21/23 17:16 Last Admin: 09/21/23 17:22 Dose: 0.5 ml Documented By: LEENA Vital Signs Vital signs: Vital Signs - 8 hr 09/21/23 17:09 Temperature 97.4 F L Pulse Rate 84 Respiratory Rate 18 Blood Pressure 113/76 Pulse Oximetry 100 Oxygen Delivery Method Room Air <Elva Jang MD - Last Filed: 09/23/23 00:54> Orders Ordered: Discontinued Medications Diphtheria/Tetanus/Acell Pertussis (Tet,Diph,Pertuss(Acell),Vac/Pf 0.5 Ml Syringe) 0.5 ml IM .ONCE ONE Stop: 09/21/23 17:16 Last Admin: 09/21/23 17:22 Dose: 0.5 ml Documented By: KW Vital Signs Vital signs: Vital Signs - 8 hr 09/21/23 17:09 Temperature 97.4 F L Pulse Rate 84 Respiratory Rate 18 Blood Pressure 113/76 Pulse Oximetry 100 Oxygen Delivery Method Room Air MDM - Extremity (Nontraumatic) <Maxwell Keys PA-C - Last Filed: 09/21/23 17:46> Imaging Data Extremity x-ray #1: Radiologist's Impression: [address] [address] XRay Report Signed Patient: Katrin Spann MR#: [id number] : 2000 Acct:[id number] Age/Sex: 23 / F Date of Service: 09/21/23 Loc: ED Accession Number: [id number] Procedure: XR finger RT min 2V Ordering Provider: Maxwell Keys P.A-C PROCEDURE: XR FINGER RT MIN 2V INDICATIONS: slammed RIGHT pointer in car door TECHNIQUE: AP hand, 2 views of the 2nd finger(s) acquired. COMPARISON: None. FINDINGS: Bones: No fractures or dislocations. No suspicious bony lesions. Soft tissues: No suspicious soft tissue calcifications. IMPRESSION: No acute 2nd finger fracture or dislocation. Dictated by: Declan Saldivar M.D. on 09/21/2023 at 17:37 Approved by: Declan Saldivar M.D. on 09/21/2023 at 17:37 [facility] Narrative Medical decision making narrative: ED course: This is a 23-year-old female presents to the emergency department due to a injury to her right 2nd digit. Her tetanus was updated as she had a very superficial abrasion. X-ray showed no fractures or other bony abnormalities. Recommended supportive care. CC: Right 2nd digit injury Complicating co-morbidities: None Data collected from: Previous notes Medical records reviewed: Patient was last seen in the emergency department about 8 months ago due to UTI symptoms. History of tendinitis in the right forearm. Patient eventually discharged. Differential considered, but not limited to: Fracture, neurovascular injury, tendon injury Exam documented above, pertinent findings include: Range of motion decreased secondary to pain Lab Test results independently reviewed as above. Pertinent findings: None obtained Imaging studies independently reviewed: X-rays unremarkable Scores Used: None MIPS Elements: None Consultations: None Treatments: None Re-evaluations: None Discussion: Discussed plan with the patient was comfortable with the plan Diagnosis: Finger sprain Disposition: see below, along with detailed discharge instructions that have been reviewed with patient as well as indications for ED re-evaluation and additional outpatient follow up Discharge Plan Departure Patient Disposition: Home Clinical Impression: Finger sprain Activity Restrictions/Additional Instructions: Thank you for coming to the [facility] Emergency Department today. As we discussed your x-rays were unremarkable. Please treat this as you would a mild sprain with ice, ibuprofen, and rest. Please return to the emergency department if you develop any [ ] or any other concerning signs or symptoms. I hope you feel better soon. Please follow up with your primary care provider within a week if your symptoms continue. If you do not have a primary care provider please contact the [facility] Resource line at [phone]. They will ask some questions about your medical history and help you get set up with a provider in the community. Prescriptions: No Action norgestimate-ethinyl estradiol [Sprintec (28)] 0.25-35 mg-mcg tablet 1 tab PO DAILY Qty: 84 3RF bupropion HCl 150 mg tablet extended release 24 hr 150 mg PO QAM Qty: 30 2RF ibuprofen 600 mg tablet 600 mg PO Q6H PRN (Reason: pain) Qty: 60 0RF Referrals: Nate Raygoza DO [Primary Care Provider] - Stand Alone Forms: Patient Portal/API ED Sign-out <Elva Jang MD - Last Filed: 09/23/23 00:54> Cosign ED Attending Willature Attestation: I did not see this patient. I was available all times for consultation.
[2023-09-21 17:09] VITALS: BP 113/76; PULSE 84; RESP 18; TEMP 36.3; O2SAT 100; BMI 19.3
--- NOTE | 2023-09-21 17:14 | DI.RAD.S_ITS ---
PROCEDURE: XR FINGER RT MIN 2V INDICATIONS: slammed RIGHT pointer in car door TECHNIQUE: AP hand, 2 views of the 2nd finger(s) acquired. COMPARISON: None. FINDINGS: Bones: No fractures or dislocations. No suspicious bony lesions. Soft tissues: No suspicious soft tissue calcifications. IMPRESSION: No acute 2nd finger fracture or dislocation. Dictated by: Declan Saldivar M.D. on 09/21/2023 at 17:37 Approved by: Declan Saldivar M.D. on 09/21/2023 at 17:37
[2023-09-21] MEDS: TET,DIPH,PERTUSS(ACELL),VAC/PF 0.5 ML SYRINGE IM (17:22)
== END 2023-09-21 17:55 | disposition home or self-care (01) ==
PROVIDERS: Emergency Provider Physician Assistant Medical; Family Provider Family Medicine; PCP Family Medicine
DX: S63.610A Unspecified sprain of right index finger, initial encounter (principal); W23.0XXA Caught, crushed, jammed, or pinched between moving objects, initial encounter; Z23 Encounter for immunization
CPT/HCPCS: 73140; 90471; 99283; 90715